=== PATIENT | female | born 1970 | race Caucasian/White ===

== ENCOUNTER → 2018-10-28 17:20 | Outpatient (CLI) | payer OTHER, SELFPAY ==
[2018-10-21 10:02] VITALS: BMI 50.8
--- NOTE | 2018-10-28 17:23 | CT_ITS ---
HISTORY: PT STATED ORDERING PHYS CHECKING FOR HERNIA AND GB, SURGERY FOR BOTH SCHEDULED. TECHNIQUE: Helically acquired images were obtained of the abdomen and pelvis following IV contrast. A radiation dose optimization technique was used for this scan. IV Contrast dosage and agent: 100 cc Isovue-300 contrast Oral contrast:: Yes COMPARISON: None FINDINGS: Lower thorax: No pleural effusion. The gallbladder is adequately distended and shows approximately 6 densely calcified stones. No pericholecystic inflammatory changes or biliary dilatation. Single phase post infusion liver is negative. Normal spleen and pancreas. Bilateral renal excretion of contrast without evidence of hydronephrosis, pyelonephritis, or suspicious renal lesion. The adrenal glands are not enlarged. Abdominal aorta is atherosclerotic and is normal in caliber. Patent IVC. No ascites or retroperitoneal lymphadenopathy. GI tract: No obstruction. Normal appendix. Pelvis: Anteverted uterus. The pelvis shows no free fluid or lymphadenopathy. Urinary bladder is poorly distended. Ventral soft tissues: A tiny fat-containing umbilical hernia. Otherwise negative. Bones: Degenerative spondylosis of the lumbosacral junction. No acute osseous abnormality. CT/Abdomen/Pelvis WITH Contrast IMPRESSION: 1. Cholelithiasis. No biliary dilatation or acute disease. 2. Tiny fat-containing umbilical hernia. Individualized dose optimization techniques were used for this CT. at 3310 Reported and signed by: Noah Lares MD Electronically Signed: Noah Lares, at 4:12 EST Tel , Service support ,
== END ==
PROVIDERS: Family Provider Family Medicine; PCP Family Medicine; Referring Provider Surgery; Visit Provider Surgery
DX: R10.9 Unspecified abdominal pain (principal)
CPT/HCPCS: 74177; Q9967

== ENCOUNTER → 2018-12-02 12:00 | Outpatient (CLI) | payer OTHER, SELFPAY ==
[2018-10-21 10:02] VITALS: BMI 50.8
--- NOTE | 2018-11-08 15:29 | EKG12_ITS ---
Test Reason : PRE OP Blood Pressure : / mmHG Vent. Rate : 084 BPM Atrial Rate : 084 BPM P-R Int : 174 ms QRS Dur : 094 ms QT Int : 384 ms P-R-T Axes : 061 029 032 degrees QTc Int : 453 ms Normal sinus rhythm Right atrial enlargement Borderline ECG Confirmed by ANTONIO MATTHEWS, FERMIN ([id number]), news assignment editor MARY BENITES ([id number]) on 11/14/2018 9:55:54 AM Referred By: Lorenzo Jasso Confirmed By:FERMIN ALVAREZ MD
[2018-11-09 08:38] LABS: Anion Gap 10 (5-15); BUN 22 mg/dL (7-18); BUN/Creat Ratio 26.1 RATIO (10-20); Calcium,Total 9.1 mg/dL (8.5-10.1); Chloride 108 mmol/L (98-107); Creatinine, Serum 0.84 mg/dL (0.55-1.02); EST Glomerular Filtration Rate 77 mL/min (>60); Est Glom Filt Rate - Afr Amer 93 mL/min (>60); Glucose 81 mg/dL (74-106); Potassium 3.8 mmol/L (3.5-5.1); Sodium Level 142 mmol/L (136-145)
== END ==
PROVIDERS: Anesthesiology; Family Provider Family Medicine; PCP Family Medicine; Referring Provider Surgery; Visit Provider Surgery
DX: I10 Essential (primary) hypertension (principal); E07.9 Disorder of thyroid, unspecified
CPT/HCPCS: 36415; 80048; 84443; 93005

== ENCOUNTER 2019-04-13 05:43 | Day surgery (SDC) | payer OTHER, SELFPAY ==
[2018-10-21 10:02] VITALS: BMI 50.8
[2019-04-11 08:07] VITALS: BMI 50.8
[2019-04-13] VITALS (9 sets, daily range): BP systolic 101–149; BP diastolic 69–95; PULSE 55–71; RESP 16–18; TEMP 36.2–36.9; O2SAT 92–99; BMI 50.8
--- NOTE | 2019-04-13 | GALL_PTH ---
PATIENT: DEB COTA [place] [facility] [id number] AGE/SX: 49/F ROOM: RE04/13/[address]: Dr. Lorenzo Jasso MD : 1970 BED: DIS: 04/13/2019 SPEC #: [id number] RECD: 04/13/19 12:09 STATUS: BIGG WILLIAM #: [id number] LIZETT: 04/13/19 00:[address]: Lorenzo Jasso DEPT: SURGICAL PATHOLOGY RECD BY: Ovidio Eller ENTERED: 04/13/19 12:09 SP TYPE: CAIN SCHREIBER DR: Silvia Allen PA-C Tissues: Gallbladder, NOS Procedures: Surgery Specimen Level III HEADER OPERATION: Laparoscopic cholecystectomy PRE-OP DIAGNOSIS: Calculus of gallbladder without cholecystitis without obstruction TISSUE SUBMITTED: Gallbladder MICROSCOPIC DIAGNOSIS Gallbladder, cholecystectomy: Chronic cholecystitis and cholelithiasis. AM:[place] 04/14/19 MICROSCOPIC DESCRIPTION Slides are reviewed. GROSS DESCRIPTION Received is one container labeled with the patient's name and designated gallbladder. The specimen consists of a gallbladder measuring 9 cm in length and up to 4 cm in diameter. The external surface is pink-shukla, smooth and glistening for the most part. Focally it is granular, hemorrhagic and contains cautery artifact. The gallbladder contains green-yellow mucoid bile and multiple multifaceted greenish-brown stones measuring in aggregate 7 x 5 x 2 cm and 0.5 to 1.5 cm in greatest dimension. The mucosa is bile-stained and without any mass lesions. The gallbladder wall measures up to 0.3 cm in thickness. An increased amount of subserosal fat is noted. Radio Survey Worker sections from the gallbladder and the cystic duct are submitted in one cassette. / SJ:[place] 04/13/19 TC:3 [facility]: [id number]
--- NOTE | 2019-04-13 05:56 | EKG12_ITS ---
Test Reason : PRE-OP Blood Pressure : / mmHG Vent. Rate : 071 BPM Atrial Rate : 071 BPM P-R Int : 182 ms QRS Dur : 096 ms QT Int : 424 ms P-R-T Axes : 062 017 030 degrees QTc Int : 460 ms Normal sinus rhythm Normal ECG When compared with ECG of 08-NOV-2018 15:39, No significant change was found Confirmed by CHUYITA KRAFT ([id number]), editorial project manager EBER MANN ([id number]) on 04/17/2019 1:46:00 PM Referred By: Lorenzo Jasso Confirmed By:JUSTIN KRAFT
--- NOTE | 2019-04-13 07:24 | PCM.HP.BLA ---
History and Physical Date of Admission: 04/13/19 [facility] [address] [place] [address] OFFICE VISIT Date of Service: 04/11/19 MR#: [id number] Acct: [id number] Name: DEB COTA Rep #: [id number] : 1970 Provider: Beata Pillai PA-C Age/Sex: 49/F Location: [facility] Status: Signed Intake Vital Signs 04/11/19 Height 5 ft 7 in 04/11/19 Weight: 325 lb 04/11/19 Body Mass Index (BMI) 50.8 04/11/19 Blood Pressure 145/91 H 04/11/19 Blood Pressure Location Rt brachial 04/11/19 Blood Pressure Position Sitting 04/11/19 Respiratory Rate 14 04/11/19 Pulse Rate 69 04/11/19 Pulse Source Monitor 04/11/19 Temperature 98.2 F 04/11/19 Temperature Source Oral 04/11/19 Pulse Ox 100 04/11/19 Oxygen Delivery Method room air Intake Visit Reasons: update h&p lap luana 6-13 DP Delinquency Prevention Social Worker Required: No Is patient in pain?: No Allergies codeine Allergy (Unknown, Verified 04/11/19 08:07) Unknown doxycycline Allergy (Unknown, Verified 04/11/19 08:07) Unknown adhesive Allergy (Verified 04/11/19 08:07) Rash Medications amlodipine 5 mg tablet 10 mg PO QHS 10/21/18 [History Confirmed 04/11/19] metoprolol succinate ER 25 mg capsule sprinkle, ext. release 24 hr 50 mg PO QHS 10/21/18 [History Confirmed 04/11/19] Thyroid,Pork [[place] Thyroid] 120 mg PO MOORE 04/10/19 [History Confirmed 04/11/19] Thyroid,Pork [[place] Thyroid] 240 mg PO MOTUWETHFR 04/10/19 [History Confirmed 04/11/19] PFSH Medical History Hypothyroidism (Acute) Abdominal wall hernia (Acute) Anemia (Acute) Hypertension (Chronic) Surgical History Hx of tubal ligation (Acute) Hx of section (Acute) Family History Father Heart disease Social History Smoking Status: Former smoker second hand exposure: No alcohol intake: current alcohol intake frequency: holidays/special occasions only substance use type: does not use caffeine: Yes what type of physical activity do you participate in: walking HPI HPI HPI: DEB COTA, is a 49 F who presents to the office today for HPI HPI Surgical H&P: Yes HPI: DEB COTA, is a 49 F who presents to the office today for an update history and physical for an upcoming procedure. Patient has a history of hypothyroidism which was not controlled with medication. Patient has since been evaluated by her PCP who has adjusted her medication and her most recent TSH was 2.23 on 03/21/19. Patient denies recent hospitalizations or illnesses since we last saw her in October. Patient denies abdominal pain/discomfort. She denies nausea, vomiting and bowel habit changes. She denies previous myocardial infarction, stroke and blood clots. She denies complications with anesthesia. Patient had a CT scan of the ab/pel on 10/28 which demonstrated an umbilical hernia containing fat. Patient's previous history per Dr. Jasso: DEB COTA, is a 48 F who presents to the office today for evaluation of cholelithiasis and ventral hernia. Patient has been noticing epigastric abdominal pain for quite some time. She is seen a surgeon in the past for the ventral hernia but he did not feel that surgery was needed at that time. She has subsequently obtained a ultrasound of her abdominal wall and right upper quadrant for her abdominal pain this confirmed evidence of cholelithiasis with a normal common bile duct and a nearly 2 cm ventral wall defect. She has never had surgeries for this to be an incisional hernia. And she cannot recall any trauma that precipitated her developing the hernia. She does have difficulty eating foods that time. Pain mostly is in the epigastric area she has difficulty lying down on her abdomen to sleep secondary to the defect. ROS General General: No weight change, appetite, fatigue, colon cancer, breast cancer or weakness HEENT HEENT: No difficulty swallowing, eye injury, eye surgery, swollen glands or hoarseness Endo Endocrine: Yes thyroid disease; no diabetes mellitus, thyroid cancer, Hair loss, heat intolerance or cold intolerance Skin Skin: No rash or changing moles Musc Musculoskeletal: No back problems, arthritis, rheumatoid arthritis, gout or joint pain Cardio Cardiovascular: Yes high blood pressure; no murmur, pacemaker, heart disease, atrial fibrillation, heart attack, heart stent, palpitations, shortness of breat with exertion or chest pain Psych Psychiatric: No depression, anxiety or hearing voices Resp Respiratory: No shortness of breath, No sleep apnea, No cough, No COPD, No asthma, No emphysema, No wheezing Gastro Gastrointestinal: Yes abdominal pain, Yes nausea or vomiting, No diarrhea, No constipation, No blood in stool, No acid reflux, Yes hemorrhoids, No ulcers, Yes gallbladder problem, No black,tarry stools Jacinto Hematologic: No blood thinners, No blood disorders, No bleeding, No anemia, No blood clots Neuro Neurologic: No weakness Exam Const General: cooperative, comfortable, no acute distress HENMT Head: normal to inspection Eyes General: appearance normal, both eyes and all related structures Neck Neck: normal visual inspection Neck mass: No Resp Effort & Inspection: normal respiratory effort Auscultation: clear to auscultation bilaterally Cardio Rate: regular rate Rhythm: regular rhythm Heart Sounds: no murmurs GI Inspection: normal to inspection, obesity Palpation: soft Auscultation: normal bowel sounds Skin General: no rashes or lesions noted Neuro General: no focal motor deficits, CN's II-XI intact bilaterally Extrem General: normal to inspection Psych Appearance: grossly normal Affect: normal affect Assessment & Plan Problems 1. Abdominal wall hernia K43.9 2. Calculus of gallbladder without cholecystitis without obstruction K80.[address] Jasso will plan to perform a laparoscopic cholecystectomy with possible simple ventral hernia repair. Procedure details, risks and benefits have been reviewed with the patient and her . Patient is aware there is a 50/50% chance of reoccurrence of the hernia. Patient has had the opportunity to ask and have questions answered. Patient verbally understands and agrees with the plan. Coding Level of Care Code No Charge Diagnoses Abdominal wall hernia K43.9 Calculus of gallbladder without cholecystitis without obstruction K80.20 ??Cholelithiasis location: gallbladder ??Cholecystitis presence: without cholecystitis ??Biliary obstruction: without biliary obstruction Comment Update H&P 04/11/19 1002 <Electronically signed by Beata Pillai PA-C> Date Beata Falk Signature: Date (if applicable) CC: NATHALY Allen ~ I have re-examined the patient. There are no clinical changes since date of exam.
[2019-04-13] MEDS: Cefazolin 2 GM in 0.9% Normal Saline 100 ML IV (08:15)
--- NOTE | 2019-04-13 08:23 | PCM.OPRPT ---
Problem List (1) Calculus of gallbladder without cholecystitis without obstruction Status: Acute Report of Operation Date of Procedure: 04/13/19 Pre-Operative Diagnosis: Calculus of the gallbladder without obstruction Post-Operative Diagnosis: same Surgery/Procedure Performed:: Laparoscopic cholecystectomy Type of Anesthesia:: General Anesthesiologist: Saurav Ramos Description of Procedure: Patient was brought to the operating room placed in the supine position. Under excellent general trach intubation the abdomen was sterilely prepped and draped in the usual fashion. Local was injected infra umbilically. Dissection was carried down to the fascia. The fascia was grasped with a Rizwana. Varies needle was placed inside the abdomen. The abdomen was insufflated to 15 torr. A 10/12 trocar was placed without difficulty. Patient was placed in the head up and rotated to the left position. A subxiphoid #5 trocar was placed, inferior to this another #5 trocar was placed, laterally a #5 trocar was placed. All these under direct visualization without injury to underlying structures. Fundus of the gallbladder was grasped retracted in cephalad direction. Infundibulum was grasped retracted laterally and dissected out the cystic duct. I placed hemoclips proximally and distally and ligated the duct. Identified the cystic artery. I placed hemoclips proximally and distally and ligated the artery. Deliver the gallbladder from gallbladder bed with use of electrocautery. I had good hemostasis. I removed the gallbladder through the umbilical port without difficulty. I reinflated the abdomen. I inspected the liver bed. It looked good and there was no signs of any bleeding. I removed the trochars under direct visualization. Good hemostasis was noted. To close the fascia the umbilical port with a figure stitch of 0 Vicryl. Skin incisions were closed with a particular stitches of 4-0 Monocryl. Steri-Strips were applied. Sterile dressings were applied. The patient tolerated the procedure well. Extensive visualization did not reveal any signs of a ventral hernia. - Admit VTE Documentation VTE Present on Admission: No VTE Mechan Device Prophylaxis: SCD's VTE Pharm Prophylaxis ordered?: No Reason prophylaxis not ordered:: Treatment Not Indicated
--- NOTE | 2019-04-13 08:24 | DCINST_ITS ---
Discharge Diet: Light diet - advance as tolerated Discharge Activity: May Not Drive - for 2-3 days or while taking narcotic pain medications., - - Do not drive, work heavy equipment or sign legal documents for 24 hours. May shower in (days): 1 - with the bandage in place. Additional Activity Instructions:: Pain medication may cause nausea. You should typically eat light foods as you take your pain medications. Pain medication may also cause constipation. If this is a problem for you, please discuss with your doctor. Call your doctor if your incision/area has: Continuous Slow Oozing, Sudden Increased Bleeding, Increased Pain/ Swelling, Increased Redness, Foul Smelling Discharge Call your doctor if you observe: Fever of 101 or Higher Suture Line Care: Avoid Pulling/Pushing, Avoid Pinching/Bending Additional Dressing/Incision Instructions:: Leave operative bandaids on for 2 days. When you remove dressing, leave Steri-Strips on until your follow-up appointment, or until the Steri-Strips fall off on their own. Allergies/Adverse Reactions: Allergies codeine Allergy (Unknown, Verified 04/11/19 08:07) Unknown doxycycline Allergy (Unknown, Verified 04/11/19 08:07) Unknown adhesive Allergy (Verified 04/11/19 08:07) Rash BANDAIDS Medications to take at Discharge amlodipine 5 mg tablet 10 mg PO QHS 10/21/18 metoprolol succinate ER 25 mg capsule sprinkle, ext. release 24 hr 50 mg PO QHS 10/21/18 Thyroid,Pork [[place] Thyroid] 120 mg PO MOORE 04/10/19 Thyroid,Pork [[place] Thyroid] 240 mg PO MOTUWETHFR 04/10/19 Primary Care Physician: Silvia Allen PA-C [Primary Care Provider] - Test Results: Test results from this visit will be discussed in further detail at your follow- up appointment, if applicable. Please Follow Up With: Lorenzo Jasso MD - Please call [phone] to schedule an appointment. When: 7 days after your surgery.
[2019-04-13] MEDS: Bupivacaine Mpf 0.5% 30 ML VIAL (09:03)
== END 2019-04-13 12:33 | disposition home or self-care (01) ==
LOC: SDC 05:43 → AC 05:46
PROVIDERS: Family Provider Family Medicine; PCP Family Medicine; Referring Provider Surgery; Visit Provider Surgery
PROC: (CPT 47562; principal; 2019-04-13 07:40)
DX: K80.10 Calculus of gallbladder with chronic cholecystitis without obstruction (principal); K43.9 Ventral hernia without obstruction or gangrene; I10 Essential (primary) hypertension; E03.9 Hypothyroidism, unspecified; Z98.51 Tubal ligation status; Z87.891 Personal history of nicotine dependence
CPT/HCPCS: 47562; 88304; 93005; J7120; J2405